=== PATIENT | male | born 1980 | race Caucasian/White ===

== ENCOUNTER 2020-01-02 23:16 | Emergency (ER) | payer OTHER ==
[~2020-01-02] VITALS: Ht 165.1 cm; Wt 72.6 kg
[~2020-01-02 23:16] MED LIST: CLOMIPHENE; Z VYVANSE; Z.0.CITALOPRAM HBR20; [UNRECOGNIZED DRUG - OTHER]
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
--- OUTSIDE RECORDS SUMMARY | 2020-01-02 23:19 | XMS REPORT | Summary of Care ---
Author Author MERNA Harris, PANKAJ Organization Unknown Address Unknown Phone Unavailable Care Team Providers Care Putaway Driver Name Role Phone KACY ROWAN M.D. Unavailable PANKAJ BAUMAN M.D. Unavailable Unavailable CARO Harris, ISIDRO Unavailable Unavailable KACY ROWAN MD Unavailable Gonzalo DICKSON MD [place], NENITA ARMENDARIZ Unavailable Unavailable Pankaj Bauman MD [...] ROWAN M.D. * Start : 30-Aug-2015 Active Flovent HFA 220 MCG/ACT Inhalation Aerosol INHALE 2 PUFFS Twice daily 2-4 puffs twice a day. * Quantity: 1 Refills: 4 PANKAJ BAUMAN M.D. * Start : 06-Jan-2019 Active 12 GM Inhaler Escitalopram Oxalate 5 MG Oral Tablet TAKE 1 TABLET DAILY. * Quantity: 90 Refills: 1 KACY ROWAN M.D. * Start : 26-Jun-2018 Active Rosuvastatin Calcium 20 MG Oral Tablet TAKE 1 TABLET DAILY. * Quantity: 90 Refills: 1 KACY ORWAN M.D. * Start : 07-Aug-2019 Active Vyvanse 30 MG Oral Capsule TAKE ONE (1) CAPSULE(S) BY MOUTH EVERY MORNING. * Quantity: 30 Refills: 0 KACY ROWAN M.D. * Start : 19-Sep-2019 Active Pantoprazole Sodium 40 MG Oral Tablet Delayed Release TAKE 1 TABLET TWICE DAILY 30 MINUTES BEFORE BREAKFAST AND DINNER. * Quantity: 60 Refills: 11 PANKAJ BAUMAN M.D. Active Allergies and Adverse Reactions Name Dates [...] 16-Aug-2013 Tdap on: Nov-2013 Influenza Comments: Approx [id number] Fluzone Quadrivalent 0.5 ML Intramuscular Suspension Lot #: [id number] on: 30-Aug-2015 Fluzone Quadrivalent 0.5 ML Intramuscular Suspension Lot #: [id number] on: 27-Sep-2016 Fluzone INJ on: 16-Aug-2018 Fluzone Quadrivalent 0.5 ML Intramuscular Suspension on: 27-Jul-2019 Family History Name Dates Details No pertinent family history (V49.89, Z78.9) Status: Active Name Dates Details No pertinent family history (V49.89, Z78.9) Status: Active Social History Name Dates Details - Status: Name Dates Details Never smoker Vital Signs Date Test Result Details [id number] BP Systolic 111 mm[Hg] Status: Comments: Location: LUE; Position: Sitting BP Diastolic 73 mm[Hg] Status: Comments: Location: LUE; Position: Sitting Height 65 in Status: Weight 171 lb Status: Body Mass Index Calculated 28.46 kg/m2 Status: Body Surface Area Calculated 1.85 m2 Status: Heart Rate 96 /min Status: Results Date Description Value Details Results not documented Plan of Care Name Dates Details Planned Observations Planned Goals not documented Planned Encounters Appointment; KACY ROWAN M.D. On: 30-Apr-2020 9:00 Appointment; PANKAJ BAUMAN M.D. On: 20-Dec-2020 10:15 Interventions Provided Medication Changes* Pantoprazole Sodium 40 MG Oral Tablet Delayed Release - Renew Plan* Continue pantoprazole twice daily dosing * Renew PPI for 1 year * No need for i swallowed corticosteroid at this time * Return to clinic in 12 months * No need for surveillance endoscopy Instructions Name Dates Details Instructions not documented [...] Problem not documented On: 25-Jul-2019 13:15 Appointment; KACY ROWAN M.D. Encounter Diagnosis: Problem not documented On: 01-Aug-2019 9:30 Appointment; KACY ROWAN M.D. Encounter Diagnosis: Problem not documented On: 31-Oct-2019 9:00 Appointment; PANKAJ BAUMAN M.D. Encounter Diagnosis: Problem not documented On: 25-Dec-2019 13:45
--- OUTSIDE RECORDS SUMMARY | 2020-01-02 23:19 | XMS REPORT | Summary of Care ---
Author Author [facility] Address [address] [place] [address] Phone Unavailable Care Team Providers Care Patient Service Technician Pst Name Role Phone HARPAL Harris, KACY BAUMAN M.D., PANKAJ Unavailable Unavailable CARO Harris, ISIDRO Unavailable Unavailable KACY ROWAN MD Unavailable Gonzalo DICKSON MD [place], NENITA ARMENDARIZ Unavailable Unavailable Pankaj Bauman MD Unavailable Unavailable Unavailable Unavailable Functional Status Name Dates Details Functional status health issues are not documented Status: Name Dates Details Cognitive status health issues are not documented Status: Problems Name Dates Details Tuberculosis screening (V74.1, Z11.1) Status: Active Essential hypertension (401.9, I10) Status: Active Attention deficit hyperactivity disorder (ADHD), 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, 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 Hypercholesterolemia (272.0, E78.00) Status: Active 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, F33.0) Status: Active Eosinophilic esophagitis (530.13, K20.0) Status: Active Chronic right shoulder pain (719.41, M25.511) Status: Active Chronic GERD (530.81, K21.9) Status: Active Cervicalgia (723.1, M54.2) Status: Active Hematuria, undiagnosed cause (599.70, R31.9) Status: Active S/P arthroscopic knee surgery (V45.89, Z98.890) Status: Active Allergic rhinitis (477.9, J30.9) Status: Active Need for influenza vaccination (V04.81, Z23) Status: Active Thyroid enlargement (240.9, E04.9) Status: Active Urticaria (708.9, L50.9) Status: Active Atrophic kidney (587, N26.1) Status: Active Dysphagia (787.20, R13.10) Status: Active Bucket-handle tear of meniscus of right knee as current injury, initial encounter (836.2, S83.200A) Status: Active Bodies, loose, knee, right (717.6, M23.41) Status: Active Medications Name Dates Details buPROPion HCl ER (XL) 150 MG Oral Tablet Extended Release 24 Hour TAKE 1 TABLET EVERY MORNING Quantity: 90 KACY ROWAN M.D. * Start : 17-Jul-2013 Active Escitalopram Oxalate 5 MG Oral Tablet TAKE 1 TABLET DAILY. * Quantity: 90 Refills: 1 KACY ROWAN M.D. * Start : 26-Jun-2018 Active Flovent HFA 220 MCG/ACT Inhalation Aerosol INHALE 2 PUFFS Twice daily 2-4 puffs twice a day. * Quantity: 1 Refills: 4 PANKAJ BAUMAN M.D. * Start : 06-Jan-2019 Active 12 GM Inhaler EpiPen 2-Woody 0.3 MG/0.3ML Injection Solution Auto-injector Use as directed for severe allergic reaction and proceed to ER. * Quantity: 2 Refills: 5 KACY ROWAN M.D. * Start : 30-Aug-2015 Active Rosuvastatin Calcium 20 MG Oral Tablet TAKE 1 TABLET DAILY. * Quantity: 90 Refills: 1 KACY ROWAN M.D. * Start : 07-Aug-2019 Active Pantoprazole Sodium 40 MG Oral Tablet Delayed Release TAKE 1 TABLET TWICE DAILY 30 MINUTES BEFORE BREAKFAST AND DINNER. * Quantity: 60 Refills: 11 PANKAJ BAUMAN M.D. Active Levocetirizine Dihydrochloride 5 MG Oral Tablet TAKE 1 TABLET EVERY DAY * Quantity: 90 Refills: 1 ISIDRO ELIZONDO M.D. * Start : 30-Aug-2015 Active Vyvanse 30 MG Oral Capsule TAKE ONE (1) CAPSULE(S) BY MOUTH EVERY MORNING. * Quantity: 30 Refills: 0 KACY ROWAN M.D. * Start : 19-Sep-2019 Active Allergies and Adverse Reactions Name Dates [...] 16-Aug-2013 Tdap on: Nov-2013 Influenza Comments: Approx [id number] Fluzone Quadrivalent 0.5 ML Intramuscular Suspension Lot #: [id number] on: 30-Aug-2015 Fluzone Quadrivalent 0.5 ML Intramuscular Suspension Lot #: [id number] on: 27-Sep-2016 Fluzone INJ on: 16-Aug-2018 Fluzone [...] Appointment; KACY ROWAN M.D. On: 30-Apr-2020 9:00 Instructions Name Dates Details Instructions not documented [...]
--- OUTSIDE RECORDS SUMMARY | 2020-01-02 23:19 | XMS REPORT | Summary of Care ---
Author Author [facility] Address [address] [place] [address] Phone Unavailable Care Team Providers Care Optimization Analyst Name Role Phone HARPAL Harris, KACY BAUMAN M.D., PANKAJ Unavailable Unavailable CARO Harris, ISIDRO Unavailable Unavailable KACY ROWAN MD Unavailable Gonzalo DICKSON MD [place], NENITA ARMENDARIZ Unavailable Unavailable Pankaj Bauman MD [...] ROWAN M.D. * Start : 30-Aug-2015 Active Pantoprazole Sodium 40 MG Oral Tablet [...] ROWAN M.D. * Start : 07-Aug-2019 Active Vyvanse [...] 16-Aug-2013 Tdap on: Nov-2013 Influenza Comments: Approx [id number] Fluzone Quadrivalent 0.5 ML Intramuscular Suspension Lot #: [id number] on: 30-Aug-2015 Fluzone Quadrivalent 0.5 ML Intramuscular Suspension Lot #: [id number] on: 27-Sep-2016 Fluzone INJ on: 16-Aug-2018 Fluzone Quadrivalent 0.5 ML Intramuscular Suspension on: 27-Jul-2019 Family History Name Dates Details No pertinent family history (V49.89, Z78.9) Status: Active Name Dates Details No pertinent family history (V49.89, Z78.9) Status: Active Social History Name Dates Details - Status: Name Dates Details Never smoker Vital Signs Date Test Result Details [id number]:45 BP Systolic 111 mm[Hg] Status: Comments: Location: [...]
--- OUTSIDE RECORDS SUMMARY | 2020-01-02 23:19 | XMS REPORT | Summary of Care ---
Author Author LISETH Hauser, DELMA Organization Unknown Address Unknown Phone Unavailable Care Team Providers Care Carpenter Helper Hardwood Flooring Name Role Phone HARPAL Harris, KACY BAUMAN M.D., PANKAJ Unavailable Unavailable CARO Harris, ISIDRO Unavailable Unavailable KACY ROWAN MD Unavailable Gonzalo DICKSON MD [place], NENITA ARMENDARIZ Unavailable Unavailable Pankaj Bauman MD [...] 16-Aug-2013 Tdap on: Nov-2013 Influenza Comments: Approx [id number] Fluzone Quadrivalent 0.5 ML Intramuscular Suspension Lot #: [id number] on: 30-Aug-2015 Fluzone Quadrivalent 0.5 ML Intramuscular Suspension Lot #: [id number] on: 27-Sep-2016 Fluzone INJ on: 16-Aug-2018 Fluzone [...]
--- OUTSIDE RECORDS SUMMARY | 2020-01-02 23:19 | XMS REPORT | Summary of Care ---
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 Quantity: 2 KACY ROWAN M.D. * Start : 30-Aug-2015 Active Vyvanse 30 MG Oral Capsule TAKE ONE (1) CAPSULE(S) BY MOUTH EVERY MORNING. * Quantity: 30 Refills: 0 KACY ROWAN M.D. * Start : 19-Sep-2019 Active Flovent HFA 220 MCG/ACT Inhalation Aerosol [...] ROWAN M.D. * Start : 07-Aug-2019 Active Levocetirizine Dihydrochloride 5 MG Oral Tablet TAKE 1 TABLET EVERY DAY * Quantity: 90 Refills: 1 ISIDRO ELIZONDO M.D. * Start : 30-Aug-2015 Active Pantoprazole Sodium 40 MG Oral Tablet Delayed Release TAKE 1 TABLET TWICE DAILY 30 MINUTES BEFORE BREAKFAST AND DINNER. * Quantity: 60 Refills: 11 PANKAJ BAUMAN M.D. Active buPROPion HCl ER (XL) 150 MG Oral Tablet Extended Release 24 Hour TAKE 1 TABLET EVERY MORNING * Quantity: 90 Refills: 1 KACY ROWAN M.D. * Start : 17-Jul-2013 Active Allergies and Adverse Reactions Name Dates [...] 16-Aug-2013 Tdap on: Nov-2013 Influenza Comments: Approx [id number] Fluzone Quadrivalent 0.5 ML Intramuscular Suspension Lot #: [id number] on: 30-Aug-2015 Fluzone Quadrivalent 0.5 ML Intramuscular Suspension Lot #: [id number] on: 27-Sep-2016 Fluzone INJ on: 16-Aug-2018 Fluzone [...]
[2020-01-02] MEDS ORDERED: METHYLPREDNISOLONE SOD SUCC 125 MG/2ML VIAL IV ONE (23:30)
[2020-01-02] MEDS ORDERED: DIPHENHYDRAMINE HCL INJ 50 MG/ML VIAL IV ONE (23:30)
[2020-01-02] MEDS ORDERED: ASPIRIN 81 MG CHEW TAB PO ONE (23:30)
[2020-01-02] MEDS ORDERED: FAMOTIDINE 20 MG/2 ML VIAL IV ONE (23:31)
[2020-01-02] MEDS ORDERED: METHYLPREDNISOLONE SOD SUCC 125 MG/2ML VIAL ONE (23:31)
[2020-01-02 23:53] LABS: BASOPHILS % 0.2 % (0.0-1.0); EOSINOPHILS # (AUTO) 0.2 (0.0-0.4); EOSINOPHILS % 1.9 % (0.0-6.0); HEMATOCRIT 45.1 % (38.2-49.6); HEMOGLOBIN 15.6 g/dL (14.0-18.0); LYMPHOCYTES # (AUTO) 2.9 (1.0-3.2); LYMPHOCYTES % 26.9 % (18.0-39.1); MEAN CORPUSCULAR HEMOGLOBIN 31.1 pg (28-32); MEAN CORPUSCULAR HGB CONC 34.6 g/dL (31-35); MEAN CORPUSCULAR VOLUME 89.8 fL (81-99); MONOCYTES # (AUTO) 1.1 (0.2-0.8); MONOCYTES % 9.9 % (4.4-11.3); NEUTROPHILS # (AUTO) 6.5 (2.1-6.9); NEUTROPHILS % 60.7 % (38.7-80.0); PLATELET COUNT 349 x10e3/uL (140-360); RED BLOOD COUNT 5.02 x10e6/uL (4.3-5.7); RED CELL DISTRIBUTION WIDTH 12.6 % (11.7-14.4)
[2020-01-03 00:28] LABS: ALANINE AMINOTRANSFERASE 42 IU/L (0-55); ALBUMIN 4.4 g/dL (3.5-5.0); ALBUMIN/GLOBULIN RATIO 1.1 (0.8-2.0); ALKALINE PHOSPHATASE 78 IU/L (40-150); ANION GAP 20.4 mmol/L (8-16); BLOOD UREA NITROGEN 19 mg/dL (7-26); BUN/CREATININE RATIO 13 (6-25); CALCIUM 9.8 mg/dL (8.4-10.2); CARBON DIOXIDE 22 mmol/L (22-29); CHLORIDE 100 mmol/L (98-107); CREATINE KINASE 218 IU/L (30-200); CREATININE, SERUM 1.42 mg/dL (0.72-1.25); EST GLOMERULAR FILTRATION RATE 55 ML/MIN (60-); GLUCOSE 99 mg/dL (74-118); POTASSIUM 3.4 mmol/L (3.5-5.1); SODIUM 139 mmol/L (136-145)
--- NOTE | 2020-01-03 01:28 | Diagnostic Imaging Report ---
EXAMINATION: CHEST SINGLE (PORTABLE) INDICATION: CHEST PAIN COMPARISON: None FINDINGS: TUBES and LINES: None. LUNGS: Lungs are well inflated. Lungs are clear. There is no evidence of pneumonia or pulmonary edema. PLEURA: No pleural effusion or pneumothorax. HEART AND MEDIASTINUM: The cardiomediastinal silhouette is unremarkable. BONES AND SOFT TISSUES: No acute osseous lesion. Soft tissues are unremarkable. UPPER ABDOMEN: No free air under the diaphragm. IMPRESSION: No acute thoracic abnormality. Signed by: Dr. Sarah Vazquez M.D. on 01/03/2020 1:25 AM
[2020-01-03 01:48] VITALS: BP 126/94
[2020-01-03] MEDS ORDERED: FAMOTIDINE 20 MG/2 ML VIAL IV SCH (09:00)
== END 2020-01-03 02:05 | disposition home or self-care (01) ==
LOC: ER 23:16
DX: T78.3XXA Angioneurotic edema, initial encounter (principal); F32.9 Major depressive disorder, single episode, unspecified; K21.9 Gastro-esophageal reflux disease without esophagitis
CPT/HCPCS: 36415; 71045; 80053; 82550; 82553; 84484; 85025; 93005; 99283; J1200; J2930